=== PATIENT | female | born 1965 | race American Indian/Alaskan Native ===

== ENCOUNTER → 2024-03-29 17:09 | Outpatient (REF) | payer OTHER, SELFPAY | LOC: WDC 17:09 | PROVIDERS: ATTENDING PHYSICIAN Physician Assistant | DX: Z12.31 Encounter for screening mammogram for malignant neoplasm of breast (principal) | CPT/HCPCS: 77063; 77067 ==

== ENCOUNTER → 2024-05-06 09:19 | Outpatient (REF) | payer MEDICARE, MEDICAID, SELFPAY | LOC: WDC 09:19 | PROVIDERS: ATTENDING PHYSICIAN Family Medicine | DX: R92.8 Other abnormal and inconclusive findings on diagnostic imaging of breast (principal) | CPT/HCPCS: 76642 ==

== ENCOUNTER → 2024-10-28 14:26 | Outpatient (REF) | payer MEDICARE, MEDICAID, SELFPAY | LOC: HWRAD 14:26 | PROVIDERS: ATTENDING PHYSICIAN Family Medicine | DX: R52 Pain, unspecified (principal); M79.642 Pain in left hand | CPT/HCPCS: 73120; 76700 ==

== ENCOUNTER → 2024-12-30 09:45 | Outpatient (REF) | payer MEDICARE, OTHER, SELFPAY | LOC: DHSLP 09:45 | PROVIDERS: ATTENDING PHYSICIAN Internal Medicine Cardiovascular Disease; FAMILY PHYSICIAN Family Medicine | DX: G47.33 Obstructive sleep apnea (adult) (pediatric) (principal) | CPT/HCPCS: 95810 ==